=== PATIENT | female | born 1975 | race Caucasian/White ===

== ENCOUNTER → 2017-09-12 | Outpatient (CLI) | payer OTHER ==
--- NOTE | 2017-09-12 08:23 | US ---
EXAMINATION TYPE: US abdomen complete DATE OF EXAM: 09/12/2017 COMPARISON: NONE CLINICAL HISTORY: R10.9 Abdominal Pain. Sharp abd pain that comes in waves, lasted 5 days, gone now EXAM MEASUREMENTS: Liver Length: 16.9 cm Gallbladder Wall: 0.2 cm CBD: 0.6 cm Spleen: 12.4 cm Right Kidney: 10.5 x 4.9 x 4.8 cm Left Kidney: 11.3 x 4.2 x 5.7 cm Pancreas: wnl Liver: Mildly hyperechoic with diminished visualization of the portal triads. This limits the evaluat ion for hepatic masses. Gallbladder: wnl Evidence for sonographic Shine's sign: no CBD: wnl Spleen: wnl Right Kidney: wnl Left Kidney: wnl Upper IVC: wnl Abd Aorta: wnl The intrahepatic portion of the IVC and proximal abdominal aorta are within normal limits. There is no evidence of cholelithiasis. Common bile duct is unremarkable. The visualized portions of the vega creas are homogenous. The spleen is unremarkable. Kidneys are symmetric and free of hydronephrosis. No renal lesions are seen. IMPRESSION: 1. No sonographic evidence of cholelithiasis or acute cholecystitis. 2. Mildly hyperechoic hepatic parenchyma, most commonly related to hepatic steatosis. Correlate with liver function tests.
== END | disposition home or self-care (01) ==
LOC: RADUSWWP 07:46
PROVIDERS: ATTEND Family Medicine
DX: R10.9 Unspecified abdominal pain (principal)
CPT/HCPCS: 76700

== ENCOUNTER → 2019-07-27 | Outpatient (CLI) | payer OTHER ==
[2019-07-27 17:11] LABS: Basophils % (A) 1 %; Eosinophils # (A) 0.1 k/uL (0-0.7); Eosinophils % (A) 1 %; HCT 37.1 % (34.0-46.0); HGB 12.2 gm/dL (11.4-16.0); Lymphocytes # (A) 1.7 k/uL (1.0-4.8); Lymphocytes % (A) 20 %; MCH 28.3 pg (25.0-35.0); MCHC 32.9 g/dL (31.0-37.0); Mean Platelet Volume 7.6; Monocytes # (A) 0.5 k/uL (0-1.0); Monocytes % (A) 5 %; Neutrophils # (A) 6.1 k/uL (1.3-7.7); Neutrophils % (A) 72 %; Platelet Count 350 k/uL (150-450); RBC 4.31 m/uL (3.80-5.40); WBC 8.6 k/uL (3.8-10.6)
== END | disposition home or self-care (01) ==
LOC: LABPAT 16:04
PROVIDERS: ATTEND Obstetrics & Gynecology
DX: Z01.812 Encounter for preprocedural laboratory examination (principal); N92.0 Excessive and frequent menstruation with regular cycle
CPT/HCPCS: 85025

== ENCOUNTER 2019-08-02 08:56 | Day surgery (SDC) | payer OTHER ==
[2019-07-28 14:00] VITALS: BMI 27.4
[~2019-08-02 08:56] MED LIST: DEXAMETHASONE SOD PHOSPHATE 10 MG/ML 1 ML VIAL IV ONE; HYDROmorphone 0.5 MG/0.5 ML SYRINGE IVP PRN; LACTATED RINGERS 1,000 ML IV SCH; LIDOCAINE 1% 20 ML VIAL (10MG/ML) FOR IV START INTRADERMA PRN; ONDANSETRON 4 MG/2 ML VIAL IVP ONE; Pre Op ABX Message 1 EACH MISC MISCELLANE ONE; fentaNYL (PF) 50 MCG/ML 2 ML AMP IV PRN
[2019-08-02 09:38] VITALS: RESP 16
[2019-08-02] MEDS ORDERED: LIDOCAINE 1% INJ 10MG/ML (20 ML MDV) ONE (09:55)
[2019-08-02] MEDS ORDERED: fentaNYL (PF) 50 MCG/ML 2 ML AMP ONE (09:55)
[2019-08-02] MEDS ORDERED: PROPOFOL 10 MG/ML 20 ML VIAL IV ONE (09:55)
[2019-08-02] MEDS ORDERED: MIDAZOLAM 2 MG/2 ML VIAL ONE (09:55)
[2019-08-02] MEDS ORDERED: KETOROLAC 30 MG/ML 1 ML VIAL ONE (09:55)
--- NOTE | 2019-08-02 10:30 | P.OP ---
Date of Procedure: 08/02/19 Preoperative Diagnosis: Menorrhagia, polymenorrhea Postoperative Diagnosis: Same, intrauterine adhesions Procedure(s) Performed: Hysteroscopy, NovaSure ablation Anesthesia: DISHAA Surgeon: Whitney Camarena Estimated Blood Loss (ml): 5 IV fluids (ml): 400 Urine output (ml): 100 Pathology: none sent Condition: stable Disposition: PACU Operative Findings: Small fundal intrauterine adhesions Description of Procedure: Patient is brought to the operating room where general anesthetic is administered without difficulty. She's placed in the dorsal lithotomy position. The cervix, vagina, perineal bodies are all prepped and draped in the usual sterile fashion. The appropriate timeout was performed to assure the proper patient and procedural identification. Urine hCG is negative. Examination under anesthesia reveals a small anteverted uterus, negative adnexa bilaterally. The bladder is drained for 100 mL of clear yellow urine. The anterior lip of the cervix is grasped with a double-tooth tenaculum after a weighted speculum was placed. The uterus sounds to a depth of 11 cm in the anteverted position. The cervix is gently and systematically dilated using Hanks dilators. Hysteroscope was introduced and the cavity is distended using sterile saline. Careful inspection of the cavity reveals a few small fundal intrauterine adhesions, otherwise the cavity is negative for polyps, tumors, or other defects. The hysteroscope was removed. The NovaSure wand is placed and seated. Uterine length of 6.5 cm, width of 4.2 cm is chosen. The machine is properly calibrated and enabled. For 58 seconds and a power of 150 W the procedure is carried out. When it is completed the wand is reduced and removed. Hysteroscope was once again placed, and the cavity is distended and inspected and noted to be thoroughly and uniformly blanched. All instrumentation was removed from the cervix which is clean and dry. All sponge needle and enhancement counts are correct at the end of the procedure. Patient is given Toradol prior to leaving the operative suite. Vital signs are stable upon completion of the procedure including a blood pressure of 114/69 96% O2 saturation and 86 pulse. Patient will follow-up with me in the office in 2 weeks.
[2019-08-02 10:36] VITALS: TEMP 97.5
[2019-08-02 11:49] VITALS: BP 129/86; PULSE 94
== END 2019-08-02 12:09 | disposition home or self-care (01) ==
LOC: OR 08:56
PROVIDERS: ATTEND Obstetrics & Gynecology
DX: N92.0 Excessive and frequent menstruation with regular cycle (principal); N85.6 Intrauterine synechiae; Z86.19 Personal history of other infectious and parasitic diseases; Z98.891 History of uterine scar from previous surgery; Z98.51 Tubal ligation status; Z87.19 Personal history of other diseases of the digestive system; Z83.3 Family history of diabetes mellitus; Z79.899 Other long term (current) drug therapy
CPT/HCPCS: 81025; 58563; J2250; J1100; J2405; J2001; J3010; J1885; J2704

== ENCOUNTER → 2020-08-30 | Outpatient (CLI) | payer OTHER ==
--- NOTE | 2020-09-01 11:25 | MM ---
Reason for exam: screening (asymptomatic). Last mammogram was performed 6 years and 3 months ago. History: Took hormonal contraceptives for 5 years. Physical Findings: A clinical breast exam by your physician is recommended on an annual basis and results should be correlated with mammographic findings. MG 3D Screening Mammo W/Cad Bilateral CC, MLO, and XCCL view(s) were taken. Prior study comparison: June 01, 2014, bilateral MG screening mammo w CAD. The breast tissue is heterogeneously dense. This may lower the sensitivity of mammography. No significant changes when compared with prior studies. ASSESSMENT: Benign, BI-RAD 2 RECOMMENDATION: Routine screening mammogram of both breasts in 1 year.
== END | disposition home or self-care (01) ==
LOC: RADMAMWWP 16:07
PROVIDERS: ATTEND Obstetrics & Gynecology
DX: Z12.31 Encounter for screening mammogram for malignant neoplasm of breast (principal)
CPT/HCPCS: 77063; 77067

== ENCOUNTER → 2022-06-10 | Outpatient (CLI) | payer OTHER ==
--- NOTE | 2022-06-11 09:13 | MM ---
Reason for Exam: Screening (asymptomatic). Last mammogram was performed 1 year(s) and 9 month(s) ago. Patient History: Menarche at age 12. First Full-Term at age 22. Patient has history of breast feeding. Patient used Hormonal Contraceptives for 5 years. Last menstrual period: 04/29/2022 Risk Values: Sarah 5 year model risk: 0.8%. NCI Lifetime model risk: 8.3%. Prior Study Comparison: 06/01/2014 Bilateral Screening Mammogram, [facility]. 08/30/2020 Bilateral Screening Mammogram, [facility]. Tissue Density: The breast tissue is heterogeneously dense. This may lower the sensitivity of mammography. Findings: Analyzed By CAD. There is no suspicious group of microcalcifications or new suspicious mass in either breast. No significant change from prior exams. Overall Assessment: Negative, BI-RAD 1 Management: Screening Mammogram of both breasts in 1 year. A clinical breast exam by your physician is recommended on an annual basis and results should be correlated with mammographic findings. Electronically signed and approved by: Cheng Smyth D.O.
== END | disposition home or self-care (01) ==
LOC: RADMAMWWP 11:04
PROVIDERS: ATTEND Obstetrics & Gynecology
DX: Z12.31 Encounter for screening mammogram for malignant neoplasm of breast (principal)
CPT/HCPCS: 77063; 77067

== ENCOUNTER → 2022-11-29 | Outpatient (CLI) | payer OTHER ==
--- NOTE | 2022-11-30 01:33 | CA ---
Transthoracic Echo Report Name: Jaz Tenorio Age: 47 Gender: F : 1975 Exam Date: 11/29/2022 11:25 Exam Location: [place] [facility] Ht (in): 64 Wt (lb): 168 Ordering Physician: Vianca Hazel MD Attending/Referring Phys: TANNER, Yasemin Coater Associate Gladys Tong RDCS Procedure CPT: Indications: R00.2, Z82.49 Cardiac Hx: Technical Quality: Fair Contrast 1: Total Dose (mL): Contrast 2: Total Dose (mL): MEASUREMENTS (Male / Female) Normal Values 2D ECHO LV Diastolic Diameter PLAX 3.9 cm 4.2 - 5.9 / 3.9 - 5.3 cm LV Systolic Diameter PLAX 3.0 cm IVS Diastolic Thickness 1.1 cm 0.6 - 1.0 / 0.6 - 0.9 cm LVPW Diastolic Thickness 1.3 cm 0.6 - 1.0 / 0.6 - 0.9 cm LV Relative Wall Thickness 0.6 RV Internal Dim ED PLAX 3.3 cm LV Diastolic Volume MOD BP 85.1 cm??? 67 - 155 / 56 - 104 cm??? LV Systolic Volume MOD BP 30.2 cm??? 22 - 58 / 19 - 49 cm??? LV Ejection Fraction MOD BP 64.5 % >= 55 % LV Cardiac Index MOD BP 2133.4 cm???/min???m??? LV Diastolic Volume MOD 4C 80.9 cm??? LV Systolic Volume MOD 4C 22.6 cm??? LV Ejection Fraction MOD 4C 72.0 % LV Cardiac Index MOD 4C 2267.8 cm???/min???m??? LV Diastolic Length 4C 8.6 cm LV Systolic Length 4C 6.5 cm LV Diastolic Volume MOD 2C 88.5 cm??? LV Systolic Volume MOD 2C 37.9 cm??? LV Ejection Fraction MOD 2C 57.2 % LV Cardiac Index MOD 2C 1970.2 cm???/min???m??? LV Diastolic Length 2C 8.8 cm LV Systolic Length 2C 7.1 cm LA Volume 33.3 cm??? 18 - 58 / 22 - 52 cm??? M-MODE Aortic Root Diameter MM 2.5 cm LA Systolic Diameter MM 2.9 cm LA Ao Ratio MM 1.2 AV Cusp Separation MM 2.0 cm DOPPLER AV Peak Velocity 138.2 cm/s AV Peak Gradient 7.6 mmHg AV Mean Velocity 95.7 cm/s AV Mean Gradient 4.0 mmHg AV Velocity Time Integral 26.2 cm LVOT Peak Velocity 130.9 cm/s LVOT Peak Gradient 6.9 mmHg LVOT Velocity Time Integral 28.0 cm MV Area PHT 4.0 cm??? Mitral E Point Velocity 69.9 cm/s Mitral A Point Velocity 84.6 cm/s Mitral E to A Ratio 0.8 MV Deceleration Time 188.1 ms MV E' Velocity 9.8 cm/s Mitral E to MV E' Ratio 7.1 TR Peak Velocity 208.5 cm/s TR Peak Gradient 17.4 mmHg Right Ventricular Systolic Press 21.7 mmHg FINDINGS Left Ventricle Mildly increased left ventricular wall thickness. Left ventricular cavity size normal. Normal left ventricular diastolic filling pattern. Normal left ventricular systolic function with no obvious regional wall motion abnormalities. Left ventricular ejection fraction is estimated at 55-60 %. Right Ventricle Normal right ventricular size and function. Right ventricular systolic pressure within normal limits. Right Atrium Normal right atrial size. Left Atrium Normal left atrial size. Mitral Valve Structurally normal mitral valve. No mitral stenosis, regurgitation or prolapse. Aortic Valve Trileaflet aortic valve. No aortic valve stenosis or regurgitation. Tricuspid Valve Structurally normal tricuspid valve. Mild tricuspid regurgitation. Pulmonic Valve Structurally normal pulmonic valve. Trace pulmonic regurgitation. Pericardium No pericardial effusion. Aorta Normal size aortic root and proximal ascending aorta. CONCLUSIONS Left ventricular ejection fraction 55-60% Mild tricuspid regurgitation RVSP 21 No pericardial effusion Previewed by: Dr. Josh Jay DO (Electronically Signed) Final Date: 30 Nov 2022 01:32
== END | disposition home or self-care (01) ==
LOC: RADECHMAIN 11:06
PROVIDERS: ATTEND Family Medicine
DX: I36.1 Nonrheumatic tricuspid (valve) insufficiency (principal); R00.2 Palpitations; Z82.49 Family history of ischemic heart disease and other diseases of the circulatory system
CPT/HCPCS: 93306

== ENCOUNTER → 2022-11-29 | Outpatient (CLI) | payer OTHER ==
[2022-11-29 20:46] LABS: Basophils # (A) 0.05 X 10*3/uL (0.00-0.10); Basophils % (A) 0.9 %; Eosinophils # (A) 0.28 X 10*3/uL (0.04-0.35); Eosinophils % (A) 4.8 %; HCT 39.5 % (37.2-46.3); HGB 12.6 g/dL (12.0-15.0); Immature Grans, Automated 0.2 %; Lymphocytes # (A) 1.32 X 10*3/uL (0.90-5.00); Lymphocytes % (A) 22.6 %; MCH 29.2 pg (27.0-32.0); MCHC 31.9 g/dL (32.0-37.0); MCV 91.6 fL (80.0-97.0); Mean Platelet Volume 10.5 fL (9.5-12.2); Monocytes # (A) 0.46 X 10*3/uL (0.20-1.00); Monocytes % (A) 7.9 %; NRBC Per 100 WBC 0 /100 WBCS (0.0-0.0); Neutrophils # (A) 3.73 X 10*3/uL (1.80-7.70); Neutrophils % (A) 63.6 %; Platelet Count 332 X 10*3/uL (140-440); RBC 4.31 X 10*6/uL (4.10-5.20); WBC 5.85 X 10*3/uL (4.50-10.00)
[2022-11-29 21:23] LABS: African American GFR (CKD) 108.5 (60.0-200.0); Albumin 4.4 g/dL (3.8-4.9); Albumin/Globulin Ratio 1.8 (1.60-3.17); Anion Gap 10.2 mmol/L (10.00-18.00); BUN/Creat Ratio 24.4 Ratio (12.00-20.00); Blood Urea Nitrogen 18.4 mg/dL (9.0-27.0); Calcium 9.4 mg/dL (8.7-10.3); Carbon Dioxide 26.1 mmol/L (20.0-27.5); Globulin 2.5 g/dL (1.6-3.3); Magnesium 2.3 mg/dL (1.5-2.4); Non-African American GFR(CKD) 93.7 (60.0-200.0); Potassium 4.6 mmol/L (3.5-5.5); Total Bilirubin 0.3 mg/dL (0.30-1.20); Total Protein 6.9 g/dL (6.2-8.2)
== END | disposition home or self-care (01) ==
LOC: LABWHC1 11:52
PROVIDERS: ATTEND Family Medicine
DX: H01.119 Allergic dermatitis of unspecified eye, unspecified eyelid (principal); J30.9 Allergic rhinitis, unspecified; L50.0 Allergic urticaria; R06.83 Snoring; R53.83 Other fatigue; R51.9 Headache, unspecified; R00.2 Palpitations; Z82.49 Family history of ischemic heart disease and other diseases of the circulatory system
CPT/HCPCS: 36415; 80053; 83735; 84443; 85025

== ENCOUNTER → 2022-12-04 | Outpatient (CLI) | payer OTHER ==
--- NOTE | 2022-12-04 16:50 | CA ---
Exercise Stress Test Report Name: Jaz Tenorio Exam Date: 12/04/2022 11:10 Exam Location: [place] [facility] Ht (in): 64 Wt (lb): 168 BSA: 1.82 Ordering Phys: Vianca Hazel MD Referring Phys: TORSTEN, Technologist: MICHAEL,, Age: 47 Gender: F : 1975 Procedure CPT: Indications: R00.2, Z82.49 ICD-10 Codes: Patient History: Palpitations Medications: Meds past 24 hrs: Pretest Chest Pain: STRESS TEST Bert Protocol Exercise Duration (min:sec): 10:[address] Depressions (mm): Angina Score: Chavez Score: Resting HR (bpm): 74 Peak HR (bpm): 168 Resting BP (mmHg): 104 / 83 Peak BP (mmHg): 155 / 77 MPHR: 172 Target HR: 146 % MPHR: 98 METS: 11.5 Total Dose: Peak Dose: Atropine: Double Product: 39910 BP Response: Stress Termination: MAX EXERTION/TARGET HR Stress Symptoms: NO SYMPTOMS Stress Summary: ECG ANALYSIS Resting ECG: Stress ECG: CONCLUSIONS Baseline EKG revealed a normal sinus rhythm without significant ST-T changes. Patient walked on a standard Bert protocol for 10 minutes and achieved a maximum heart rate of 167 bpm. He did not have any angina there was no arrhythmia. Rare PVCs were noted. By EKG criteria this is a negative stress test with excellent exercise capacity. The nuclear scan results which are more pertinent will be reported by the radiologist Dr. Cassie Burris MD (Electronically Signed) Final Date: 04 Dec 2022 16:49
== END | disposition home or self-care (01) ==
LOC: RADNMMAIN 10:26
PROVIDERS: ATTEND Family Medicine
DX: R00.2 Palpitations (principal); Z82.49 Family history of ischemic heart disease and other diseases of the circulatory system
CPT/HCPCS: 93017

== ENCOUNTER → 2023-11-13 | Outpatient (CLI) | payer OTHER ==
--- NOTE | 2023-11-17 14:04 | MM ---
Reason for Exam: Screening (asymptomatic). Last mammogram was performed 1 year(s) and 5 month(s) ago. Patient History: Menarche at age 12. First Full-Term at age 22. Perimenopausal. Patient has history of breast feeding. Patient used Hormonal Contraceptives for 5 years. Risk Values: Sarah 5 year model risk: 0.8%. NCI Lifetime model risk: 8.2%. Prior Study Comparison: 06/01/2014 Bilateral Screening Mammogram, [facility]. 08/30/2020 Bilateral Screening Mammogram, [facility]. 06/10/2022 Bilateral MG 3D screening mammo w/cad, [facility]. Tissue Density: The breasts are heterogeneously dense, which may obscure small masses. Findings: Analyzed By CAD. There is no suspicious group of microcalcifications or new suspicious mass in either breast. Overall Assessment: Benign, BI-RAD 2 Management: Screening Mammogram of both breasts in 1 year. . Patient should continue monthly self-breast exams. A clinical breast exam by your physician is recommended on an annual basis. This exam should not preclude additional follow-up of suspicious palpable abnormalities. Note on Sarah scores and lifetime risk: 1. A Sarah score greater than 3% is considered moderate risk. If this is the case, consider specialist referral to assess eligibility for a risk reducing agent. 2. If overall lifetime risk for the development of breast cancer is 20% or higher, the patient may qualify for future screening with alternating mammogram and breast MRI. Electronically signed and approved by: Hemanth Sun M.D. Radiologis
== END | disposition home or self-care (01) ==
LOC: RADMAMWWP 08:54
PROVIDERS: ATTEND Obstetrics & Gynecology
DX: Z12.31 Encounter for screening mammogram for malignant neoplasm of breast (principal); Z92.0 Personal history of contraception
CPT/HCPCS: 77063; 77067